=== PATIENT | female | born 1970 | race Caucasian/White ===

== ENCOUNTER 2019-07-15 15:43 | Emergency (ER) | payer MEDICARE ==
[2019-07-15 15:54] VITALS: RESP 18; TEMP 97.8
--- NOTE | 2019-07-15 16:11 | ED ---
General Adult HPI - General Source: patient Mode of arrival: ambulatory Limitations: no limitations <Rufino Blankenship - Last Filed: 07/15/19 17:49> <Brigitte Chadwick - Last Filed: 07/18/19 11:46> - General Chief complaint: Abdominal Pain Stated complaint: Pain in buttocks Time Seen by Provider: 07/15/19 15:57 - History of Present Illness Initial comments: Patient is a 48-year-old female presenting to the emergency department with a chief complaint of pain in the buttocks. Patient reports pain in the region for one week. Patient states she can feel a mass around the anus. Patient states she has noticed a mass in the last 2 days and has been grown in size. States she has not been able to have a bowel movement and is constipated because of the pain. Denies any abdominal discomfort nausea vomiting. Denies history of hemorrhoids. Reports using [id number] hemorrhoid creams with minimal improvement. (Rufino Blankenship) - Related Data Previous Rx's Medication Instructions Recorded Lidocaine Viscous 2% [Xylocaine 15 ml MUCOUS MEM QID #1 cup 07/15/19 Viscous] Allergies Allergy/AdvReac Type Severity Reaction Status Date / Time Penicillins Allergy Anaphylaxis Verified 07/15/19 15:54 Review of Systems ROS Other: All systems not noted in ROS Statement are negative. <Rufino Blankenship - Last Filed: 07/15/19 17:49> ROS Other: All systems not noted in ROS Statement are negative. <Brigitte Chadwick - Last Filed: 07/18/19 11:46> ROS Statement: Those systems with pertinent positive or pertinent negative responses have been documented in the HPI. Past Medical History Past Medical History: Thyroid Disorder Additional Past Medical History / Comment(s): Brain anerysm, headaches Past Surgical History: Section Past Psychological History: ADD/ADHD, Depression Smoking Status: Current every day smoker Past Alcohol Use History: Occasional Past Drug Use History: Marijuana <Rufino Blankenship - Last Filed: 07/15/19 17:49> General Exam Limitations: no limitations General appearance: alert, in no apparent distress, obese Head exam: Present: atraumatic, normocephalic, normal inspection Eye exam: Present: normal appearance, PERRL, EOMI Pupils: Present: normal accommodation ENT exam: Present: normal exam, normal oropharynx, mucous membranes moist Neck exam: Present: normal inspection, full ROM Respiratory exam: Present: normal lung sounds bilaterally Cardiovascular Exam: Present: regular rate, normal rhythm, normal heart sounds GI/Abdominal exam: Present: soft. Absent: distended, tenderness, guarding Rectal exam: Present: hemorrhoids (Thrombosed external hemorrhoid measuring approximately 1 cm x 3 cm.) Extremities exam: Present: normal inspection, full ROM Back exam: Present: normal inspection, full ROM Neurological exam: Present: alert, oriented X3 Psychiatric exam: Present: normal affect, normal mood Skin exam: Present: warm, dry, intact, normal color <Rufino Blankenship - Last Filed: 07/15/19 17:49> Course Vital Signs 07/15/19 07/15/19 15:47 19:01 Temperature 97.8 F Pulse Rate 111 H 106 H Respiratory 18 18 Rate Blood Pressure 146/96 138/93 O2 Sat by Pulse 98 98 Oximetry Procedures - Incision & Drainage Consent Obtained: verbal consent Indication: Hemorrhoid external, thrombosed. Site: other (Anus) Size (cm): 3 Anesthetic Used: lidocaine 1%, with epi Amount (mLs): 3 I&D Cleaning Method: Alcohol Wipe Sterile Field Used?: No Scalpel Used: #11 Needle Aspiration Performed?: No Irrigation Performed?: No I&D Drainage Obtained: Blood Culture Obtained?: No Complications: pain, bleeding Patient Tolerated Procedure: well, no complications <Rufino Blankenship - Last Filed: 07/15/19 17:49> Medical Decision Making <Rufino Blankenship - Last Filed: 07/15/19 17:49> <Brigitte Chadwick - Last Filed: 07/18/19 11:46> - Medical Decision Making Patient 48-year-old female presenting to emergency Department with a chief complaint of pain in the buttocks. On exam patient has a thrombosed external hemorrhoid that is tender. It also appears to be slightly blue/purple in color. Incision and drainage was performed with 1% lidocaine with epinephrine. Patient tolerated procedure well. Patient advised to continue using absent salt baths to help with the discomfort. Patient will be discharged with viscous lidocaine gel. Patient was also given analgesia prior to procedure. KUB obtained shows signs of constipation secondary to fecal impaction. Patient also discharged with mag citrate. Patient advised to follow a high fiber diet. Advised to follow-up with her Primary care. Return parameters thoroughly discussed the patient is a nursing agreeable. Case discussed with physician. (Rufino Blankenship) I was available for consultation in the emergency department. The history and physical exam were done by the midlevel provider. I was consulted for this patients care. I reviewed the case with the midlevel provider and based on their presentation of the patient, I agree with the assessment, medical decision making and plan of care as documented. Chart was dictated using [employer] dictation software. Attempts were made to correct any dictation errors however some typographical errors may persist. Patient was seen during a national state of emergency due to the Covid-19 pandemic. (Brigitte Chadwick) Disposition Is patient prescribed a controlled substance at d/c from ED?: No Time of Disposition: 17:46 <Rufino Blankenship - Last Filed: 07/15/19 17:49> <Brigitte Chadwick - Last Filed: 07/18/19 11:46> Clinical Impression: Thrombosed external hemorrhoid, Constipation Disposition: HOME SELF-CARE Condition: Stable Instructions (If sedation given, give patient instructions): Hemorrhoids (DC), Thrombosed Hemorrhoid (ED) Additional Instructions: Take prescribed medication as directed. Follow-up with the primary care. Return to emergency department if symptoms worsen. Prescriptions: Lidocaine Viscous 2% [Xylocaine Viscous] 15 ml MUCOUS MEM QID #1 cup Referrals: Nikolai Anderson MD [Primary Care Provider] - 1-2 days
[2019-07-15] MEDS ORDERED: MORPHINE SULFATE 4 MG/ML SYRINGE IM STA (16:30)
[2019-07-15] MEDS ORDERED: LIDOCAINE 1%-EPI 1:100,000 20 ML VIAL SQ STA (16:31)
--- NOTE | 2019-07-15 17:36 | XR ---
EXAMINATION TYPE: XR KUB DATE OF EXAM: 07/15/2019 COMPARISON: NONE HISTORY: Constipation TECHNIQUE: 2 views FINDINGS: 2 views upright show some retained fecal material throughout the large bowel. There is no e vidence of free air. Lung bases are clear. There are no pathologic calcifications over the kidneys. IMPRESSION: There is evidence of constipation. No free air.
[2019-07-15] MEDS ORDERED: MAGNESIUM CITRATE 296 ML BOTTLE PO ONE (17:45)
[2019-07-15 19:02] VITALS: BP 138/93; PULSE 106
== END 2019-07-15 19:00 | disposition home or self-care (01) ==
LOC: EC 15:43
DX: K64.5 Perianal venous thrombosis (principal); K59.00 Constipation, unspecified; F17.200 Nicotine dependence, unspecified, uncomplicated; Z88.0 Allergy status to penicillin
CPT/HCPCS: 74018; 99284; 46083; 96372; J2270

== ENCOUNTER 2022-02-12 08:41 | Emergency (ER) | payer MEDICARE ==
[2022-02-12 08:52] VITALS: TEMP 97.8
[2022-02-12] MEDS ORDERED: MORPHINE SULFATE 4 MG/ML SYRINGE IVP STA (09:04)
--- NOTE | 2022-02-12 09:06 | ED ---
General Adult HPI - General Chief complaint: Shortness of Breath Stated complaint: STEPHANI, post triple bypass Time Seen by Provider: 02/12/22 08:54 Source: patient, family, RN notes reviewed Mode of arrival: ambulatory Limitations: no limitations - History of Present Illness Initial comments: Patient is a pleasant 51-year-old female presenting to the emergency department with concerns with dyspnea. Symptoms have progressed over the past 2 weeks. Dyspnea does worsen with exertion. Patient does have some mild leg swelling. No calf pain. Patient does have some discomfort right side of the chest. Onset of symptoms has been since she had her surgery 2 weeks ago. Patient had triple bypass. Patient did have a large sneeze prior to discharge and make symptoms worse however that have progressed since that time. - Related Data Home Medications Medication Instructions Recorded Confirmed Amiodarone [Cordarone] 400 mg PO DAILY 02/12/22 02/12/22 Aspirin EC [Ecotrin Low Dose] 81 mg PO DAILY 02/12/22 02/12/22 Atorvastatin Calcium [Lipitor] 80 mg PO HS 02/12/22 02/12/22 Dextroamphetamine/Amphetamine 30 mg PO BID 02/12/22 02/12/22 [Adderall Xr 30 mg Capsule] Furosemide [Lasix] See Taper PO DIRECTED 02/12/22 02/12/22 Levothyroxine Sodium [Synthroid] 175 mcg PO DAILY 02/12/22 02/12/22 Losartan Potassium [Cozaar] 25 mg PO DAILY 02/12/22 02/12/22 Metoprolol Tartrate [Lopressor] 25 mg PO BID 02/12/22 02/12/22 Ondansetron Odt [Zofran Odt] 4 mg PO Q8HR PRN 02/12/22 02/12/22 Pantoprazole Sodium [Protonix] 40 mg PO DAILY 02/12/22 02/12/22 Ticagrelor [Brilinta] 90 mg PO BID 02/12/22 02/12/22 amLODIPine [Norvasc] 5 mg PO DAILY 02/12/22 02/12/22 lisinopriL [Zestril] 5 mg PO DAILY 02/12/22 02/12/22 traMADol HCL 50 mg PO Q6H PRN 02/12/22 02/12/22 Allergies Allergy/AdvReac Type Severity Reaction Status Date / Time Penicillins Allergy Anaphylaxis Verified 02/12/22 08:53 Review of Systems ROS Statement: Those systems with pertinent positive or pertinent negative responses have been documented in the HPI. ROS Other: All systems not noted in ROS Statement are negative. Constitutional: Denies: fever Eyes: Denies: eye pain ENT: Denies: ear pain Respiratory: Reports: as per HPI, dyspnea Cardiovascular: Reports: as per HPI, chest pain Endocrine: Denies: fatigue Gastrointestinal: Denies: abdominal pain Genitourinary: Denies: dysuria Musculoskeletal: Denies: back pain Skin: Denies: rash Neurological: Denies: weakness Past Medical History Past Medical History: Thyroid Disorder Additional Past Medical History / Comment(s): Brain anerysm, headaches, tripple bypass History of Any Multi-Drug Resistant Organisms: None Reported Past Surgical History: Section Additional Past Surgical History / Comment(s): Tripple bypass Past Psychological History: ADD/ADHD, Depression Smoking Status: Former smoker Past Alcohol Use History: Occasional Past Drug Use History: Marijuana General Exam Limitations: no limitations General appearance: alert, in no apparent distress Head exam: Present: normocephalic Eye exam: Present: normal appearance Neck exam: Present: normal inspection Respiratory exam: Present: normal lung sounds bilaterally, chest wall tenderness (Right sternal. Incision is clean and dry and intact. No erythema.). Absent: respiratory distress Cardiovascular Exam: Present: regular rate, normal rhythm Expanded Peripheral pulses: 2+: Radial (R), Radial (L), Posterior Tibialis (R), Posterior Tibialis (L) GI/Abdominal exam: Present: soft. Absent: tenderness Extremities exam: Present: pedal edema (+1 bilateral). Absent: calf tenderness Back exam: Present: normal inspection Neurological exam: Present: alert Psychiatric exam: Present: normal affect, normal mood Skin exam: Present: normal color Course Vital Signs 02/12/22 02/12/22 02/12/22 08:47 09:55 09:56 Temperature 97.8 F Pulse Rate 59 L Respiratory 18 Rate Blood Pressure 107/74 O2 Sat by Pulse 96 98 100 Oximetry 02/12/22 02/12/22 09:57 11:19 Temperature Pulse Rate 58 L Respiratory 20 18 Rate Blood Pressure 106/67 O2 Sat by Pulse 98 Oximetry EKG Findings - EKG Results: EKG: interpreted by ERMD (Nonspecific T waves), sinus rhythm, normal axis, normal QRS Medical Decision Making - Medical Decision Making Case was crusted with medicine who did want patient to be transferred. Transfer team did notify the surgeon who would like his patient transferred. I did speak with Karthik as well as Dr. Hennessy will accept transfer. - Lab Data Result diagrams: 02/12/22 09:24 02/12/22 09:24 Lab Results 02/12/22 02/12/22 02/12/22 Range/Units 09:24 09:24 09:24 WBC 12.1 H (3.8-10.6) k/uL RBC 3.76 L (3.80-5.40) m/uL Hgb 11.8 (11.4-16.0) gm/dL Hct 35.6 (34.0-46.0) % MCV 94.8 (80.0-100.0) fL MCH 31.3 (25.0-35.0) pg MCHC 33.0 (31.0-37.0) g/dL RDW 14.4 (11.5-15.5) % Plt Count 786 H (150-450) k/uL MPV 7.4 Neutrophils % 77 % Lymphocytes % 13 % Monocytes % 4 % Eosinophils % 6 % Basophils % 0 % Neutrophils # 9.3 H (1.3-7.7) k/uL Lymphocytes # 1.5 (1.0-4.8) k/uL Monocytes # 0.5 (0-1.0) k/uL Eosinophils # 0.7 (0-0.7) k/uL Basophils # 0.0 (0-0.2) k/uL Hypochromasia Slight Poikilocytosis Slight PT 10.3 (9.0-12.0) sec INR 1.0 (<1.2) APTT 25.2 (22.0-30.0) sec Sodium 141 (137-145) mmol/L Potassium 4.3 (3.5-5.1) mmol/L Chloride 105 (98-107) mmol/L Carbon Dioxide 24 (22-30) mmol/L Anion Gap 12 mmol/L BUN 15 (7-17) mg/dL Creatinine 0.70 (0.52-1.04) mg/dL Est GFR (CKD-EPI)AfAm >90 (>60 ml/min/1.73 sqM) Est GFR (CKD-EPI)NonAf >90 (>60 ml/min/1.73 sqM) Glucose 97 (74-99) mg/dL Plasma Lactic Acid Arnold (0.7-2.0) mmol/L Calcium 9.1 (8.4-10.2) mg/dL Magnesium 2.3 (1.6-2.3) mg/dL Total Bilirubin 0.9 (0.2-1.3) mg/dL AST 29 (14-36) U/L ALT 16 (4-34) U/L Alkaline Phosphatase 94 (38-126) U/L Troponin I (0.000-0.034) ng/mL NT-Pro-B Natriuret Pep pg/mL Total Protein 7.1 (6.3-8.2) g/dL Albumin 4.0 (3.5-5.0) g/dL Influenza Type A (PCR) (Not Detectd) Influenza Type B (PCR) (Not Detectd) RSV (PCR) (Not Detectd) SARS-CoV-2 (PCR) (Not Detectd) 02/12/22 02/12/22 02/12/22 Range/Units 09:24 09:24 09:53 WBC (3.8-10.6) k/uL RBC (3.80-5.40) m/uL Hgb (11.4-16.0) gm/dL Hct (34.0-46.0) % MCV (80.0-100.0) fL MCH (25.0-35.0) pg MCHC (31.0-37.0) g/dL RDW (11.5-15.5) % Plt Count (150-450) k/uL MPV Neutrophils % % Lymphocytes % % Monocytes % % Eosinophils % % Basophils % % Neutrophils # (1.3-7.7) k/uL Lymphocytes # (1.0-4.8) k/uL Monocytes # (0-1.0) k/uL Eosinophils # (0-0.7) k/uL Basophils # (0-0.2) k/uL Hypochromasia Poikilocytosis PT (9.0-12.0) sec INR (<1.2) APTT (22.0-30.0) sec Sodium (137-145) mmol/L Potassium (3.5-5.1) mmol/L Chloride (98-107) mmol/L Carbon Dioxide (22-30) mmol/L Anion Gap mmol/L BUN (7-17) mg/dL Creatinine (0.52-1.04) mg/dL Est GFR (CKD-EPI)AfAm (>60 ml/min/1.73 sqM) Est GFR (CKD-EPI)NonAf (>60 ml/min/1.73 sqM) Glucose (74-99) mg/dL Plasma Lactic Acid Arnold 1.3 (0.7-2.0) mmol/L Calcium (8.4-10.2) mg/dL Magnesium (1.6-2.3) mg/dL Total Bilirubin (0.2-1.3) mg/dL AST (14-36) U/L ALT (4-34) U/L Alkaline Phosphatase (38-126) U/L Troponin I (0.000-0.034) ng/mL NT-Pro-B Natriuret Pep 1220 pg/mL Total Protein (6.3-8.2) g/dL Albumin (3.5-5.0) g/dL Influenza Type A (PCR) Not Detected (Not Detectd) Influenza Type B (PCR) Not Detected (Not Detectd) RSV (PCR) Not Detected (Not Detectd) SARS-CoV-2 (PCR) Not Detected (Not Detectd) 02/12/22 Range/Units 09:53 WBC (3.8-10.6) k/uL RBC (3.80-5.40) m/uL Hgb (11.4-16.0) gm/dL Hct (34.0-46.0) % MCV (80.0-100.0) fL MCH (25.0-35.0) pg MCHC (31.0-37.0) g/dL RDW (11.5-15.5) % Plt Count (150-450) k/uL MPV Neutrophils % % Lymphocytes % % Monocytes % % Eosinophils % % Basophils % % Neutrophils # (1.3-7.7) k/uL Lymphocytes # (1.0-4.8) k/uL Monocytes # (0-1.0) k/uL Eosinophils # (0-0.7) k/uL Basophils # (0-0.2) k/uL Hypochromasia Poikilocytosis PT (9.0-12.0) sec INR (<1.2) APTT (22.0-30.0) sec Sodium (137-145) mmol/L Potassium (3.5-5.1) mmol/L Chloride (98-107) mmol/L Carbon Dioxide (22-30) mmol/L Anion Gap mmol/L BUN (7-17) mg/dL Creatinine (0.52-1.04) mg/dL Est GFR (CKD-EPI)AfAm (>60 ml/min/1.73 sqM) Est GFR (CKD-EPI)NonAf (>60 ml/min/1.73 sqM) Glucose (74-99) mg/dL Plasma Lactic Acid Arnold (0.7-2.0) mmol/L Calcium (8.4-10.2) mg/dL Magnesium (1.6-2.3) mg/dL Total Bilirubin (0.2-1.3) mg/dL AST (14-36) U/L ALT (4-34) U/L Alkaline Phosphatase (38-126) U/L Troponin I 0.063 H* (0.000-0.034) ng/mL NT-Pro-B Natriuret Pep pg/mL Total Protein (6.3-8.2) g/dL Albumin (3.5-5.0) g/dL Influenza Type A (PCR) (Not Detectd) Influenza Type B (PCR) (Not Detectd) RSV (PCR) (Not Detectd) SARS-CoV-2 (PCR) (Not Detectd) - Radiology Data Interpreted by me: Chest x-ray shows left-sided effusion Disposition Clinical Impression: Pleural effusion Disposition: OTHER INSTITUTION NOT DEFINED Condition: Stable Is patient prescribed a controlled substance at d/c from ED?: No Referrals: Nikolai Anderson MD [Primary Care Provider] - 1-2 days Time of Disposition: 13:53 - Out of Hospital Transfer - Req. Specs Out of Hospital Transfer - Requested Specifics: Other Emergency Center
[2022-02-12 09:52] LABS: Basophils % (A) 0 %; Eosinophils # (A) 0.7 k/uL (0-0.7); Eosinophils % (A) 6 %; HCT 35.6 % (34.0-46.0); HGB 11.8 gm/dL (11.4-16.0); Hypochromasia Slight; Lymphocytes # (A) 1.5 k/uL (1.0-4.8); Lymphocytes % (A) 13 %; MCH 31.3 pg (25.0-35.0); MCV 94.8 fL (80.0-100.0); Mean Platelet Volume 7.4; Monocytes # (A) 0.5 k/uL (0-1.0); Monocytes % (A) 4 %; Neutrophils # (A) 9.3 k/uL (1.3-7.7); Neutrophils % (A) 77 %; Platelet Count 786 k/uL (150-450); Poikilocytosis Slight; RBC 3.76 m/uL (3.80-5.40); RDW 14.4 % (11.5-15.5); WBC 12.1 k/uL (3.8-10.6)
[2022-02-12 10:03] LABS: ALT 16 U/L (4-34); AST 29 U/L (14-36); African American GFR (CKD) >90 (>60 ml/min/1.73 sqM); Alkaline Phosphatase 94 U/L (38-126); Blood Urea Nitrogen 15 mg/dL (7-17); Carbon Dioxide 24 mmol/L (22-30); Chloride 105 mmol/L (98-107); Glucose 97 mg/dL (74-99); Non-African American GFR(CKD) >90 (>60 ml/min/1.73 sqM); Total Bilirubin 0.9 mg/dL (0.2-1.3); Total Protein 7.1 g/dL (6.3-8.2)
[2022-02-12 10:04] LABS: Partial Thromboplastin Time 25.2 sec (22.0-30.0); Prothrombin Time 10.3 sec (9.0-12.0)
[2022-02-12 10:21] LABS: Anion Gap 12 mmol/L; Calcium 9.1 mg/dL (8.4-10.2); Magnesium 2.3 mg/dL (1.6-2.3); Sodium 141 mmol/L (137-145)
--- NOTE | 2022-02-12 10:23 | XR ---
EXAMINATION TYPE: XR chest 2V DATE OF EXAM: 02/12/2022 10:12 AM COMPARISON: None TECHNIQUE: XR chest 2V Frontal and lateral views of the chest. CLINICAL INDICATION:Female, 51 years old with history of difficulty breathing; FINDINGS: Lungs/Pleura: Small to moderate size left pleural effusion with associated atelectasis. No focal cons olidation or pneumothorax. Pulmonary vascularity: Unremarkable. Heart/mediastinum: Cardiomediastinal silhouette is enlarged. Musculoskeletal: No acute osseous pathology. Midline sternotomy wires are noted. IMPRESSION: Cardiomegaly with small to moderate size left pleural effusion with associated atelectasis.
[2022-02-12 10:24] LABS: Potassium 4.3 mmol/L (3.5-5.1)
[2022-02-12 15:48] VITALS: BP 111/74; PULSE 77; RESP 15
== END 2022-02-12 15:48 | disposition other institution (70) ==
LOC: EC 08:41
DX: J90 Pleural effusion, not elsewhere classified (principal); I51.7 Cardiomegaly; E07.9 Disorder of thyroid, unspecified; F90.9 Attention-deficit hyperactivity disorder, unspecified type; F32.A Depression, unspecified; Z87.891 Personal history of nicotine dependence; F12.90 Cannabis use, unspecified, uncomplicated; Z88.0 Allergy status to penicillin; Z20.822 Contact with and (suspected) exposure to COVID-19; Z79.82 Long term (current) use of aspirin
CPT/HCPCS: 36415; 93005; 83880; 80053; 83605; 83735; 84484; 85025; 85610; 85730; 87636; 71046; 99285; 96374; J2270